=== PATIENT | male | born 1950 | race Caucasian/White ===

== ENCOUNTER → 2016-11-17 | Outpatient (CLI) | payer MEDICARE, OTHER ==
--- NOTE | ~2016-11-17 | ECHO ---
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 The maximal stress echocardiogram demonstrated no evidence of inducible ischemia. Patient reached 81% of MPHR and achieved 14.6 METS. Double product is 25,452. Resting EF= 60%, Peak EF @ stress= 75% Procedure Type of Study Stress procedure:Stress Echo SF. Procedure Date Date: 11/17/2016 Start: 10:30 AM Study Location: Inpatient Portable Technical Quality: Adequate visualization Appropriate Use Criteria: 9 Patient Status: Routine Rhythm: NSR BP: 167/88 mmHg Rest Resting HR:54 bpmResting BP:167/88 mmHg Stress Stress Type: Exercise Peak HR: 126 bpm HR BP Product: [id number] Peak BP: 202/89 mmHg Max Exercise: 14.6 METS Predicted HR: 155 bpm % of predicted HR: 81 Stress Protocol: Exercise - Lucien M-Mode/2D Measurements LVOT: 2.1 cm LVOT VTI: 26.8 cm LV Stroke volume: 92.78 ml Doppler Measurements AV Peak Velocity: 1.36 m/s MV Peak E-Wave: 0.72 m/s AV Peak Gradient: 7.4 mmHg MV Peak A-Wave: 0.78 m/s AV Mean Gradient: 4 mmHg MV E/A Ratio: 0.92 LVOT Peak Velocity: 1.06 m/s MV P1/2t: 64 msec Findings Left Ventricle resting EF appears with in normal Diastolic dysfunction grade I. Mitral Valve Trivial mitral regurgitation by color Doppler. Aortic Valve Grossly normal structure and function. Contractility Score Rest LV regional wall motion:(0-Non visualized 1-Normal 2-Hypokinesis 3-Akinesis 4-Dyskinesis 5-Aneurysm) Signature dtt: ENEDINA MENEZES dtd: 11/17/16 1030 Physician Self Edit
== END | disposition disaster alternative care site (69) ==
LOC: GCAR 09:13
DX: R55 Syncope and collapse (principal); N64.4 Mastodynia; R05 Cough; I10 Essential (primary) hypertension; E66.01 Morbid (severe) obesity due to excess calories; L98.9 Disorder of the skin and subcutaneous tissue, unspecified
CPT/HCPCS: C8930; J0360